=== PATIENT | female | born 1950 | race Caucasian/White ===

== ENCOUNTER → 2016-10-01 | Outpatient (CLI) | payer OTHER | END | disposition home or self-care (01) | LOC: C.PAPS 15:42 | PROVIDERS: ATTEND Obstetrics & Gynecology | DX: Z01.419 Encounter for gynecological examination (general) (routine) without abnormal findings (principal) ==

== ENCOUNTER → 2016-12-09 | Outpatient (CLI) | payer OTHER ==
--- NOTE | 2016-12-09 14:35 | MAMMOGRAPHY REPORT ---
BILATERAL DIGITAL SCREENING MAMMOGRAM WITH CAD: 12/09/2016 CLINICAL HISTORY: Routine screening. Patient has no complaints. TECHNIQUE: Current study was also evaluated with a Computer Aided Detection (CAD) system. Bilatera l CC and MLO views were obtained. COMPARISON: Comparison is made to exams dated: 12/09/2015 mammogram, 12/06/2014 mammogram, 11/30/2013 mammogram, 11/23/2012 mammogram, 11/23/2011 mammogram, and 11/20/2010 mammogram - [facility]. BREAST COMPOSITION: There are scattered areas of fibroglandular density in both breasts. FINDINGS: No suspicious masses, calcifications, or areas of architectural distortion are noted in e ither breast. There has been no significant interval change compared to prior exams. IMPRESSION: ACR BI-RADS CATEGORY 1: NEGATIVE There is no mammographic evidence of malignancy. A 1 year screening mammogram is recommended. The p atient will receive written notification of the results. Approximately 10% of breast cancers are not detected with mammography. A negative mammographic repor t should not delay biopsy if a clinically suggestive mass is present. Carla Harris M.D. /:12/09/2016 11:26:36 Glove Wrapper: Chanda Ahn, [facility] letter sent: Normal 1/2 BI-RADS Code: ACR BI-RADS Category 1: Negative
== END | disposition home or self-care (01) ==
LOC: C.MAMM 09:47
PROVIDERS: ATTEND Family Medicine
DX: Z12.31 Encounter for screening mammogram for malignant neoplasm of breast (principal)

== ENCOUNTER → 2017-02-10 | Outpatient (CLI) | payer OTHER ==
[2017-02-10 16:56] LABS: BASO % 0.5 %; BASO ABS # 0.03 K/uL (0-0.2); COMPLETE YES; EOS % 5.2 %; HEMATOCRIT 43.2 % (37-47); IG% 0.2 %; LYMPH % 27.9 %; LYMPH ABS # 1.73 K/uL (1.2-3.4); MEAN CELL VOLUME 91.1 fL (80-100); MEAN CORPUSCULAR HEMOGLOBIN 28.1 pg (25-34); MEAN CORPUSCULAR HGB CONC 30.8 g/dl (32-36); MONO % 7.4 %; NEUT % 58.8 %; PLATELET COUNT 188 K/uL (130-400); RED BLOOD COUNT 4.74 M/uL (4.2-5.4); WHITE BLOOD COUNT 6.21 K/uL (4.8-10.8)
[2017-02-10 17:26] LABS: BLOOD UREA NITROGEN 14 mg/dl (7-18); CREATININE 0.82 mg/dl (0.60-1.20); GLUCOSE 94 mg/dl (70-99)
[2017-02-10 17:27] LABS: BUN/CREATININE RATIO 16.6 (10-20); CALCIUM 9.2 mg/dl (8.5-10.1); CARBON DIOXIDE 30 mmol/L (21-32); CHLORIDE 109 mmol/L (98-107); POTASSIUM 3.8 mmol/L (3.5-5.1); SODIUM 143 mmol/L (136-145)
== END | disposition home or self-care (01) ==
LOC: C.LABBC 12:54
PROVIDERS: ATTEND Physician Assistant Medical
DX: R55 Syncope and collapse (principal)

== ENCOUNTER → 2017-12-16 | Outpatient (CLI) | payer OTHER ==
--- NOTE | 2017-12-17 14:19 | MAMMOGRAPHY REPORT ---
BILATERAL DIGITAL SCREENING MAMMOGRAM TOMOSYNTHESIS WITH CAD: 12/16/2017 CLINICAL HISTORY: Routine screening. Patient has no complaints. TECHNIQUE: Breast tomosynthesis in addition to standard 2D mammography was performed. Current study was also evaluated with a Computer Aided Detection (CAD) system. COMPARISON: Comparison is made to exams dated: 12/09/2016 mammogram, 12/09/2015 mammogram, 12/06/2014 m ammogram, 12/04/2013 mammogram, 11/30/2013 mammogram, and 11/23/2012 mammogram - [facility] enter. BREAST COMPOSITION: There are scattered areas of fibroglandular density in both breasts. FINDINGS: No suspicious masses, calcifications, or areas of architectural distortion are noted in ei ther breast. There has been no significant interval change compared to prior exams. IMPRESSION: ACR BI-RADS CATEGORY 1: NEGATIVE There is no mammographic evidence of malignancy. A 1 year screening mammogram is recommended. The pa tient will receive written notification of the results. Approximately 10% of breast cancers are not detected with mammography. A negative mammographic report should not delay biopsy if a clinically suggestive mass is present. Carla Harris M.D. /:12/16/2017 13:41:02 Judo Teacher: Chanda Ahn [facility] letter sent: Normal 1/2 BI-RADS Code: ACR BI-RADS Category 1: Negative
== END | disposition home or self-care (01) ==
LOC: C.MAMM 11:48
PROVIDERS: ATTEND Physician Assistant Medical
DX: Z12.31 Encounter for screening mammogram for malignant neoplasm of breast (principal)

== ENCOUNTER 2024-09-23 15:04 | Observation (INO) ==
[2024-09-23 16:18] LABS: Basophils # (auto) 0.05 K/uL (0.00-0.20); Basophils % (auto) 0.7 %; Eosinophils # (auto) 0.27 K/uL (0.00-0.50); Hematocrit (blood only) 41.3 % (37.0-47.0); Hemoglobin 13.3 g/dl (12.0-16.0); Immature Granulocytes # (auto) 0.02 K/uL (0.01-0.20); Immature Granulocytes % (auto) 0.3 %; Lymphocytes # (auto) 2.04 K/uL (1.20-3.40); Lymphocytes % (auto) 30.5 %; Mean Corpuscular Hemoglobin 29.4 pg (25.0-34.0); Mean Corpuscular Hgb Conc 32.2 g/dL (32.0-36.0); Mean Corpuscular Volume 91.2 fL (80.0-100.0); Mean Platelet Volume 11.2 fL (9.4-12.4); Monocytes # (auto) 0.43 K/uL (0.11-0.59); Monocytes % (auto) 6.4 %; Neutrophils # (auto) 3.87 K/uL (1.40-6.50); Neutrophils % (auto) 58.1 %; Platelet Count 173 K/uL (130-400); RDW Coefficient of Variation 13.7 % (11.5-14.5); RDW Standard Deviation 46.4 fL (36.4-46.3); Red Blood Count 4.53 M/uL (4.20-5.40); White Blood Count 6.68 K/ul (4.8-10.8)
--- NOTE | 2024-09-23 16:20 | Emergency Department Note ---
Impression & Plan Chest pain ED Provider Note HISTORY OF PRESENT ILLNESS: Patient is a 74-year-old female presenting with chest pain. Patient reports that this morning while eating breakfast she developed "intense pain" in her left shoulder blade. States that the pain then seemed to migrate to the left side of her anterior chest and is now in the substernal region of her chest. Reports she took an Advil earlier this morning with little relief in symptoms. Reports the pain in her chest is a tightness sensation. She is never had pain like this before. She states the pain has been constant since onset earlier this morning, but waxes and wanes in intensity. She does not note any alleviating or exacerbating factors. She denies any DVT or PE history. Denies any history of cardiac stents. She reports last time she had a stress test was "a long time ago." She currently is saying that she is having chest tightness, but rates it a 1 out of 10. Denies any associated nausea, vomiting, abdominal pain, back pain, shortness of breath. She does report intermittently throughout the morning she felt lightheaded and dizzy with the pain. Denies any recent medication changes. Denies any fevers or chills. Denies any recent sick contact exposures. ROS: as above PHYSICAL EXAM: Constitutional: Patient appears in no acute distress. HENT: Head: Normocephalic and atraumatic. Eyes: EOMI, PERRL Mouth/Throat: Mucous membranes moist. Neck: Trachea midline. Neck supple. Cardiovascular: RRR, No murmurs, rubs or gallops. Intact distal pulses. Pulmonary/Chest: No respiratory distress. Breath sounds clear and equal bilaterally. No wheezes or rales. Abdominal: Abdomen soft, no tenderness, rebound or guarding. Musculoskeletal: No edema, tenderness or deformity noted. Skin: Warm and dry. No rash, erythema, pallor or cyanosis Psychiatric: Appropriate mood and affect for situation. Neurological: Alert and keenly responsive. CN II-XII grossly intact, moving all extremities equally and fully. MDM: - Vitals signs showed hypertension - History obtained via patient. History as above. - Chronic conditions affecting care: HTN; HLD; obesity; prediabetes - Differential diagnoses include, but are not limited to: Acute coronary syndrome; pulmonary embolism; dissection; tension pneumothorax; esophageal rupture; pneumonia - Order placed for continuous cardiac monitoring. At this time, monitor showed rate of 70 bpm with normal sinus rhythm, per my interpretation. - External medical records reviewed. Primary care visit note dated 05/11/2024 was reviewed. Patient was seen in clinic for her regular follow-up. She had her fluoxetine medication discontinued at that visit. - EKG interpreted by myself showed normal sinus rhythm. Rate 82 bpm. QT 398. No acute ischemic changes. - Laboratory workup interpreted by myself showed normal WBC; normal PT/INR; elevated D-dimer (1860); normal electrolytes; normal troponin; normal lipase - CXR negative for pneumonia, per my interpretation - Viral respiratory panel negative - UA negative for infection - Repeat troponin within normal limits - CT PE negative for PE or dissection. - Patient was offered pain medication while in the emergency department, but she declined. However, she is still complaining of persistent chest pain on reassessment. Patient is moderate risk heart score based on age and multiple medical comorbidities. Will admit to hospitalist service. - Discussion was had with patient case coordinator about patient's case and need for admission - Hospitalist consulted for admission - Patient admitted to [facility] hospitalist service for further evaluation and management. ASSESSMENT AND PLAN: Diagnosis: Chest pain Plan: admit Past Med/Surg History Problem List (Updated 09/23/24 @ 21:39 by Ekaterina Hoffman MD) Chest pain (Acute) Depression, major, single episode, mild Mild intermittent asthma Hypertension Prediabetes (Acute) Obesity (BMI 30-39.9) Osteopenia Medical History Depression Polio Degenerative disc disease Spastic colon Prediabetes Heart palpitations Asthma Allergic rhinitis Surgical History History of anesthesia reaction History of surgery on arm History of esophagogastroduodenoscopy (EGD) History of colonoscopy History of tooth extraction Nasal polyps Family History Mother Essential hypertension Dementia Father Acute myocardial infarction in his 30s. Grandfather (Maternal) Family history of diabetes mellitus Grandmother (Maternal) Family history of diabetes mellitus Grandmother (Maternal) Breast cancer great grandma Uncle Lung cancer Other Diabetes Hypertension Myocardial infarction Stroke Denies family history of Ovarian cancer Prostate cancer Colorectal cancer Social History Smoking Status: Never smoker Second Hand Exposure: Yes ( A CHILD); Do You Dip or Chew Tobacco: No; Hx Alcohol Use: No Hx Substance Use: No Preferred Language: Danish Communication Ability: Effective Visual Impairment: Limited Hearing Ability: Normal Feed House Supervisor Required: No Beliefs That Will Affect Care: None marital status: marital status details: moved out but still Current Living Situation: Alone current occupational status: employed How many Children do You have: 4 other: Part-time Feels Safe at Home: Yes Childhood Exposure to Second-Hand Smoke: Yes Diet: regular caffeine: Yes Dental Care, Regularly: Yes Physical Activity Frequency: 3-4 Times per Week Seatbelt Use: always Sunscreen Use: No Assistive Devices: Glasses Allergies Allergies Allergy/AdvReac Type Severity Reaction Status Date / Time tioconazole Allergy ITCHING Verified 09/23/24 18:05 [From Monistat 1 (tioconazole)] Home Meds Home Medications Medication Instructions Recorded Confirmed bupropion HCl 200 mg tablet,12 hr 200 mg PO QAM 09/23/24 09/23/24 sustained-release fluvoxamine 50 mg tablet 50 mg PO HS 09/23/24 09/23/24 Previous Rx's Medication Instructions Recorded albuterol sulfate 90 mcg/actuation 2 puff inhalation Q6H PRN SHORT OF 05/23/24 aerosol inhaler BREATH #8.5 grams telmisartan 20 mg tablet 20 mg PO DAILY #90 tabs 07/05/24 fluticasone propionate 50 1 spray intranasal BID #16 grams 07/25/24 mcg/actuation nasal spray,suspension fluticasone 250 mcg-salmeterol 50 1 inh inhalation BID #180 ea 07/26/24 mcg/dose blistr powdr for inhalation (Wixela Inhub) Results & Data (ED) Vital Signs Vital Signs - 24 hr 09/23/24 15:05 09/23/24 15:17 09/23/24 15:17 Temperature 36.2 C L Temperature Source Skin Pulse Rate - Lying Pulse Rate - Sitting Pulse Rate - Standing Pulse Rate 83 Pulse Rate [Apical] Pulse Rate [Exercises] Pulse Rhythm [Apical] Pulse Strength [Apical] Respiratory Rate 18 18 Respiratory Rate [Exercises] Respiratory Effort / Characteristics Non-Labored Spontaneous Respiratory Depth Normal Respiratory Pattern Regular Blood Pressure - Lying Blood Pressure - Sitting Blood Pressure- Standing Blood Pressure 170/89 H Blood Pressure [Right Arm] Blood Pressure Mean 116 Blood Pressure Mean [Right Arm] Blood Pressure Position [Right Arm] Pulse Oximetry 97 Pulse Oximetry [Exercises] Oxygen Delivery Method Room Air Room Air Sepsis Recent Fever Within 48 Hours No Sepsis New/Unexplained Change in Mental Status N/A Sepsis Action Taken by Nursing No Action Required 09/23/24 15:51 09/23/24 15:59 09/23/24 19:36 Temperature Temperature Source Pulse Rate - Lying 72 Pulse Rate - Sitting 63 Pulse Rate - Standing 88 Pulse Rate 68 Pulse Rate [Apical] Pulse Rate [Exercises] Pulse Rhythm [Apical] Pulse Strength [Apical] Respiratory Rate Respiratory Rate [Exercises] Respiratory Effort / Characteristics Respiratory Depth Respiratory Pattern Blood Pressure - Lying 170/88 H Blood Pressure - Sitting 169/87 H Blood Pressure- Standing 159/92 H Blood Pressure Blood Pressure [Right Arm] Blood Pressure Mean Blood Pressure Mean [Right Arm] Blood Pressure Position [Right Arm] Pulse Oximetry Pulse Oximetry [Exercises] Oxygen Delivery Method Room Air Sepsis Recent Fever Within 48 Hours Sepsis New/Unexplained Change in Mental Status Sepsis Action Taken by Nursing 09/23/24 19:42 09/23/24 19:49 09/23/24 20:30 Temperature Temperature Source Pulse Rate - Lying Pulse Rate - Sitting Pulse Rate - Standing Pulse Rate 63 Pulse Rate [Apical] 67 Pulse Rate [Exercises] 93 H Pulse Rhythm [Apical] Regular Pulse Strength [Apical] Normal Respiratory Rate 19 Respiratory Rate [Exercises] 20 Respiratory Effort / Characteristics Non-Labored Spontaneous Respiratory Depth Normal Respiratory Pattern Regular Blood Pressure - Lying Blood Pressure - Sitting Blood Pressure- Standing Blood Pressure Blood Pressure [Right Arm] 156/86 H Blood Pressure Mean Blood Pressure Mean [Right Arm] 109 Blood Pressure Position [Right Arm] Sitting Pulse Oximetry 94 Pulse Oximetry [Exercises] 97 Oxygen Delivery Method Room Air Room Air Sepsis Recent Fever Within 48 Hours Sepsis New/Unexplained Change in Mental Status Sepsis Action Taken by Nursing Laboratory Data 09/23/24 15:23 09/23/24 15:23 Lab Results 09/23/24 09/23/24 09/23/24 Range/Units 15:23 16:54 19:10 WBC 6.68 (4.8-10.8) K/ul RBC 4.53 (4.20-5.40) M/uL Hgb 13.3 (12.0-16.0) g/dl Hct 41.3 (37.0-47.0) % MCV 91.2 (80.0-100.0) fL MCH 29.4 (25.0-34.0) pg MCHC 32.2 (32.0-36.0) g/dL RDW Std Deviation 46.4 H (36.4-46.3) fL RDW Coeff of Porsha 13.7 (11.5-14.5) % Plt Count 173 (130-400) K/uL MPV 11.2 (9.4-12.4) fL Immature Gran % (Auto) 0.3 % Neut % (Auto) 58.1 % Lymph % (Auto) 30.5 % Dane % (Auto) 6.4 % Eos % (Auto) 4.0 % Baso % (Auto) 0.7 % Neut # (Auto) 3.87 (1.40-6.50) K/uL Lymph # (Auto) 2.04 (1.20-3.40) K/uL Dane # (Auto) 0.43 (0.11-0.59) K/uL Eos # (Auto) 0.27 (0.00-0.50) K/uL Baso # (Auto) 0.05 (0.00-0.20) K/uL Immature Gran # (Auto) 0.02 (0.01-0.20) K/uL PT 11.1 (9.0-12.0) Seconds INR 1.0 (0.9-1.1) D-Dimer 1860 H* (0-500) ug/L FEU Sodium 140 (136-145) mmol/L Potassium 4.8 (3.5-5.1) mmol/L Chloride 107 (98-107) mmol/L Carbon Dioxide 27 (21-32) mmol/L Anion Gap 6 (3-11) BUN 19 (6-23) mg/dl Creatinine 1.10 (0.6-1.2) mg/dl Est Cr Clr Drug Dosing 50.8 ml/min eGFR 53.06 BUN/Creatinine Ratio 17.3 (10-20) Glucose 80 (70-99(Fasting)) mg/dl Calcium 10.2 (8.6-10.3) mg/dl Magnesium 2.0 (1.7-2.4) mg/dl Total Bilirubin 0.4 (0.2-1.0) mg/dl AST 24 (13-39) U/L ALT 16 (7-52) U/L Alkaline Phosphatase 68 (34-104) U/L Troponin I High Sens 3.7 5.0 (0-14) pg/ml Total Protein 7.1 (6.0-8.3) gm/dl Albumin 4.1 (3.4-5.0) gm/dl Globulin 3.0 (2.5-4.0) gm/dl Albumin/Globulin Ratio 1.4 (0.9-2) Lipase 11 (11-82) U/L Urine Color Yellow Urine Appearance Clear (Clear) Urine pH 6.0 (4.5-7.5) Ur Specific Byers 1.006 (1.000-1.030) Urine Protein Negative (Negative) Urine Glucose (UA) Negative (Negative) Urine Ketones Negative (Negative) Urine Blood Negative (Negative) Urine Nitrite Negative (Negative) Urine Bilirubin Negative (Negative) Urine Urobilinogen Negative (Negative) Ur Leukocyte Esterase Negative (Negative) Adenovirus (PCR) Not Detected (NotDetected) B. pertussis DNA (PCR) Not Detected (NotDetected) B.parapertussis DNA PCR Not Detected (NotDetected) C. pneumoniae DNA (PCR) Not Detected (NotDetected) Coronavirus OC43 (PCR) Not Detected (NotDetected) Coronavirus HKU1 (PCR) Not Detected (NotDetected) Coronavirus 229E (PCR) Not Detected (NotDetected) SARS-CoV-2 (PCR) Not Detected (NotDetected) Coronavirus NL63 (PCR) Not Detected (NotDetected) Human Metapneumovir PCR Not Detected (NotDetected) Influenza Type A (PCR) Not Detected (NotDetected) Influenza Type B (PCR) Not Detected (NotDetected) M. pneumoniae (PCR) Not Detected (NotDetected) Parainfluenza 1 (PCR) Not Detected (NotDetected) Parainfluenza 2 (PCR) Not Detected (NotDetected) Parainfluenza 3 (PCR) Not Detected (NotDetected) Parainfluenza 4 (PCR) Not Detected (NotDetected) RSV (PCR) Not Detected (NotDetected) Entero/Rhino (PCR) Not Detected (NotDetected) Administered Medications Discontinued Medications Ioversol (Optiray 320 125ml) 115 ml IV ONCE ONE Stop: 09/23/24 19:53 Last Admin: 09/23/24 19:52 Dose: 115 ml Documented By: SAMEER Imaging Data Radiologist's Impression: Chest X-Ray 09/23/24 15:59 EXAM: Radiograph of the Chest 1 View INDICATION: Chest pain. TECHNIQUE: Frontal view of the chest. COMPARISON: 07/12/2023 FINDINGS: Lungs and pleural spaces: No consolidation or pulmonary edema. No pleural effusion or pneumothorax. Heart: Stable cardiomegaly. Mediastinum: Normal contour. Bones/joints: Stable chronic deformity proximal left humerus. No acute osseous abnormality noted. Soft tissues: No abnormality noted. No radiopaque foreign body noted. Upper abdomen: No abnormality noted. IMPRESSION: No acute cardiopulmonary disease. ACT 112: Negative or not required by law. Electronically signed by Vijaya Oh 09-23-2024 4:30 PM Chest CTA 09/23/24 19:41 Exam(s): CTA CHEST IV Amt: 115 ml optiray 320 EXAM: CT Angiography Chest With Intravenous Contrast CLINICAL HISTORY: Reason for exam: PE. TECHNIQUE: Axial computed tomographic angiography images of the chest with intravenous contrast. CTDI is 25.63 mGy and DLP is 834.08 mGy-cm. Automated exposure control was utilized for the study. A dose lowering technique was utilized adhering to the principles of ALARA. MIP reconstructed images were created and reviewed. COMPARISON: No relevant prior studies available. FINDINGS: Pulmonary arteries: Unremarkable. No pulmonary embolism. Aorta: No acute findings. No thoracic aortic aneurysm. Lungs: Unremarkable. No mass. No consolidation. Pleural space: Unremarkable. No significant effusion. No pneumothorax. Heart: Unremarkable. No cardiomegaly. No significant pericardial effusion. No evidence of RV dysfunction. Bones/joints: No acute fracture. No dislocation. Soft tissues: Unremarkable. Lymph nodes: Unremarkable. No enlarged lymph nodes. IMPRESSION: Normal chest CTA. No pulmonary embolism. Electronically signed by: Vamsi Platt MD 09/23/24 21:33 PM Discharge Plan Visit Data Chief Complaint: Chest Pain Stated Complaint: PAIN BY L SHOULDERBLADE THIS AM, CHEST TIGHT NOW ED Provider: Ekaterina Hoffman Discharge Problem: Chest pain Forms Stand Alone Forms: My [facility] Prescriptions Prescriptions: No Action albuterol sulfate 90 mcg/actuation HFA aerosol inhaler 2 puff inhalation Q6H PRN (Reason: SHORT OF BREATH) Qty: 8.5 1RF telmisartan 20 mg tablet 20 mg PO DAILY Qty: 90 2RF fluticasone propionate 50 mcg/actuation spray,suspension 1 spray intranasal BID Qty: 16 2RF Rx Instructions: administer into each nostril fluticasone propion-salmeterol [Wixela Inhub] 250-50 mcg/dose blister with device 1 inh inhalation BID Qty: 180 2RF fluvoxamine 50 mg tablet 50 mg PO HS bupropion HCl 200 mg tablet sustained-release 12 hr 200 mg PO QAM Referrals Referrals: Nuno Dave DO [Primary Care Provider] -
[2024-09-23 16:22] LABS: Albumin Globulin Ratio 1.4 (0.9-2); Albumin Level 4.1 gm/dl (3.4-5.0); BUN Creatinine Ratio 17.3 (10-20); Bilirubin,Total 0.4 mg/dl (0.2-1.0); Calcium 10.2 mg/dl (8.6-10.3); Creatinine Clr Calc Pharmacy 50.8 ml/min; Potassium 4.8 mmol/L (3.5-5.1); Total Protein 7.1 gm/dl (6.0-8.3)
[2024-09-23 16:30] LABS: Troponin I High Sensitivity 3.7 pg/ml (0-14)
--- NOTE | 2024-09-23 16:30 | XRay Report ---
EXAM: Radiograph of the Chest 1 View INDICATION: Chest pain. TECHNIQUE: Frontal view of the chest. COMPARISON: 07/12/2023 FINDINGS: Lungs and pleural spaces: No consolidation or pulmonary edema. No pleural effusion or pneumothorax. Heart: Stable cardiomegaly. Mediastinum: Normal contour. Bones/joints: Stable chronic deformity proximal left humerus. No acute osseous abnormality noted. Soft tissues: No abnormality noted. No radiopaque foreign body noted. Upper abdomen: No abnormality noted. IMPRESSION: No acute cardiopulmonary disease. ACT 112: Negative or not required by law. Electronically signed by Vijaya Oh 09-23-2024 4:30 PM
[2024-09-23 16:42] LABS: Prothrombin Time 11.1 Seconds (9.0-12.0)
[2024-09-23 17:14] LABS: Appearance Urine Clear (Clear); Bilirubin Urine Negative (Negative); Blood Urine Negative (Negative); Color Urine Yellow; Glucose Urine UA Negative (Negative); Ketones Urine Negative (Negative); Leukocyte Esterase Urine Negative (Negative); Nitrite Urine Negative (Negative); Protein Urine Negative (Negative); Specific Gravity Urine 1.006 (1.000-1.030); Urobilinogen Urine Negative (Negative)
[2024-09-23 18:00] LABS: Adenovirus PCR Not Detected (NotDetected); Bordetella parapertussis PCR Not Detected (NotDetected); Bordetella pertussis PCR Not Detected (NotDetected); Chlamydia pneumoniae PCR Not Detected (NotDetected); Coronavirus 229E PCR Not Detected (NotDetected); Coronavirus CoV-2 (COVID19)PCR Not Detected (NotDetected); Coronavirus HKU1 PCR Not Detected (NotDetected); Coronavirus NL63 PCR Not Detected (NotDetected); Coronavirus OC43PCR Not Detected (NotDetected); Human Metapneumovirus PCR Not Detected (NotDetected); Influenza A PCR Not Detected (NotDetected); Influenza B PCR Not Detected (NotDetected); Mycoplasma pneumoniae PCR Not Detected (NotDetected); Parainfluenza Virus 1 PCR Not Detected (NotDetected); Parainfluenza Virus 2 PCR Not Detected (NotDetected); Parainfluenza Virus 3 PCR Not Detected (NotDetected); Parainfluenza Virus 4 PCR Not Detected (NotDetected); Respiratory Syncytial VirusPCR Not Detected (NotDetected); Rhinovirus/Enterovirus PCR Not Detected (NotDetected)
[2024-09-23 19:41] LABS: D Dimer 1860 ug/L FEU (0-500)
[2024-09-23] MEDS: OPTIRAY 320 125ml IV ONE (19:52)
--- NOTE | 2024-09-23 21:34 | CT Scan Report ---
Exam(s): CTA CHEST IV Amt: 115 ml optiray 320 EXAM: CT Angiography Chest With Intravenous Contrast CLINICAL HISTORY: Reason for exam: PE. TECHNIQUE: Axial computed tomographic angiography images of the chest with intravenous contrast. CTDI is 25.63 mGy and DLP is 834.08 mGy-cm. Automated exposure control was utilized for the study. A dose lowering technique was utilized adhering to the principles of ALARA. MIP reconstructed images were created and reviewed. COMPARISON: No relevant prior studies available. FINDINGS: Pulmonary arteries: Unremarkable. No pulmonary embolism. Aorta: No acute findings. No thoracic aortic aneurysm. Lungs: Unremarkable. No mass. No consolidation. Pleural space: Unremarkable. No significant effusion. No pneumothorax. Heart: Unremarkable. No cardiomegaly. No significant pericardial effusion. No evidence of RV dysfunction. Bones/joints: No acute fracture. No dislocation. Soft tissues: Unremarkable. Lymph nodes: Unremarkable. No enlarged lymph nodes. IMPRESSION: Normal chest CTA. No pulmonary embolism. Electronically signed by: Vamsi Platt MD 09/23/24 21:33 PM
[2024-09-23] MEDS ORDERED: ALUMINUM/MAGNESIUM SUSP 30 ML UDC PO PRN (22:10)
[2024-09-23] MEDS ORDERED: ACETAMINOPHEN 325 MG TAB PO PRN ×2 (22:10→23:03)
--- NOTE | 2024-09-23 22:10 | History & Physical Report ---
Date of Service September 23, 2024 Assessment & Plan (1) Chest pain: (2) Elevated d-dimer: Plan 74-year-old female PMHx asthma, HTN, and MDD presenting to ED for evaluation of chest tightness. ED workup reveals normal CBC, normal CMP, clean UA, negative bio fire, but elevated D-dimer 1860. CXR was without acute findings, and chest CTA revealed no PE. EKG NSR with manage criteria for LVH and rate of 82 bpm. #Chest pressure/elevated D-dimer Chest pressure initially starting as left shoulder blade pain, intense in nature then localizing to central chest, coming and going, but a nagging 1 out of 10 sensation. No abdominal symptoms, no recent illness. No personal history of car diac disease, but positive family history of cardiac disease. Evaluated by foreign banknote teller in the past for what she describes as "the feeling you get right before chill" but with a benign workup. Report for prior Holter monitor completed in August 2021; Overall WNL, symptoms assocaited w/ VPDs. Declined aspirin in ED. On telmisartan for HTN. HEART score 3 (Age, risk factors [2]). - EKG normal sinus rhythm, ? LVH; Troponin 3.7, repeat 5; will trend once more - D-dimer 1860; CXR WNL, chest CTA WNL - Echo pending - Lipid panel 04/2024- total 193, LDL 101, HDL 42, TG 248 - Tylenol 500mg po q4hr for pain; K-pad for L shoulder pain if it returns - Maalox 30mL po q4hr if indigestion #Asthma- H/o asthma, stable without SOB or cough at time of admission; Home medications, albuterol as needed, fluticasone/salmeterol - continue #MDD- Fluvoxamine Dispo: Admit, observation, med/tele VTE Prophylaxis: SCDs, encourage ambulation This document was dictated utilizing [employer]. Please excuse any grammatical errors that may be secondary to use of this software. Admission and Anticipated Discharge Date Admission Date: 09/23/2024 History of Present Illness Chief Complaint: Chest tightness Primary Care Provider: Nuno Dave DO 74-year-old female PMHx asthma, HTN, and MDD presenting to ED for evaluation of chest tightness. The morning of arrival, patient noticed that she was having intense left shoulder blade pain which was not letting up. States after an hour or so, the pain subsided and seem to have changed locations to her central ch est, and then mainly localizing between central chest and left side. States that the chest tightness is coming on and off, and reading the sensation a 1 out of 10 but nagging. Does have some fluttering in her chest at times, but unable to recall the most recent time that this occurred, stating it might of happened on the day of arrival but is unsure. On her way to the ED, she was driving and states that she started to feel lightheaded and dizzy. Does have bilateral leg swelling at times, but has not noticed that 1 leg was swollen or erythematous compared to the other. No diaphoresis, SOB, cough, abdominal pain, N/B/D/C, LUTS, fever/chills, or recent illness. ED workup reveals normal CBC, normal CMP, clean UA, negative bio fire, but elevated D-dimer 1860. Troponin 3.7, repeat 5. CXR was without acute findings, and chest CTA revealed no PE. EKG NSR with manage criteria for LVH and rate of [address] Hdez's attestation for adjustments/additions to treatment plan. Allergies Allergy/AdvReac Type Severity Reaction Status Date / Time tioconazole Allergy ITCHING Verified 09/23/24 18:05 [From Monistat 1 (tioconazole)] Home Medications Medication Instructions Recorded Confirmed Type albuterol sulfate 90 mcg/actuation 2 puff inhalation Q6H PRN SHORT OF 05/23/24 09/23/24 Rx aerosol inhaler BREATH #8.5 grams telmisartan 20 mg tablet 20 mg PO DAILY #90 tabs 07/05/24 09/23/24 Rx fluticasone propionate 50 1 spray intranasal BID #16 grams 07/25/24 09/23/24 Rx mcg/actuation nasal spray,suspension fluticasone 250 mcg-salmeterol 50 1 inh inhalation BID #180 ea 07/26/24 09/23/24 Rx mcg/dose blistr powdr for inhalation (Wixela Inhub) bupropion HCl 200 mg tablet,12 hr 200 mg PO QAM 09/23/24 09/23/24 History sustained-release fluvoxamine 50 mg tablet 50 mg PO HS 09/23/24 09/23/24 History cyanocobalamin (vitamin B-12) 500 1,000 mcg (2 x 500 mcg) PO QAM #60 09/24/24 Rx mcg tablet tabs Past Med/Surg History Problem List (Updated 09/23/24 @ 22:12 by Phyllis Love PA-C) Elevated d-dimer Chest pain (Acute) Depression, major, single episode, mild Mild intermittent asthma Hypertension Prediabetes (Acute) Obesity (BMI 30-39.9) Osteopenia Medical History Depression Polio Degenerative disc disease Spastic colon Prediabetes Heart palpitations Asthma Allergic rhinitis Surgical History History of anesthesia reaction History of surgery on arm History of esophagogastroduodenoscopy (EGD) History of colonoscopy History of tooth extraction Nasal polyps Family History Mother Essential hypertension Dementia Father Acute myocardial infarction in his 30s. Grandfather (Maternal) Family history of diabetes mellitus Grandmother (Maternal) Family history of diabetes mellitus Grandmother (Maternal) Breast cancer great grandma Uncle Lung cancer Other Diabetes Hypertension Myocardial infarction Stroke Denies family history of Ovarian cancer Prostate cancer Colorectal cancer Social History Smoking Status: Never smoker Second Hand Exposure: No; Do You Dip or Chew Tobacco: No; Hx Alcohol Use: No Hx Substance Use: No Preferred Language: Mongolian Communication Ability: Effective Visual Impairment: Limited Hearing Ability: Normal Broom Bundler Required: No Beliefs That Will Affect Care: None marital status: marital status details: moved out but still Current Living Situation: Alone current occupational status: employed How many Children do You have: 4 other: Part-time Feels Safe at Home: Yes Childhood Exposure to Second-Hand Smoke: Yes Diet: regular caffeine: Yes Dental Care, Regularly: Yes Physical Activity Frequency: 3-4 Times per Week Seatbelt Use: always Sunscreen Use: No Assistive Devices: Glasses Review of Systems Review of Systems: All systems reviewed & are unremarkable except as noted in Subjective Physical Exam Physical Exam: General: No acute distress Skin: Warm and dry, without rashes or lesions Head: Normocephalic, atraumatic Eyes: PERRL, conjunctivae clear, sclera non-icteric ENT: External ear and ear canal without swelling; nose atraumatic; good d entition, tongue normal appearance, pharynx normal Neck: Supple, no LAD Cardio: RRR, no M/G/R, S1 and S2 normal; no tenderness to palpation of chest Resp: No respiratory distress, Lungs CTA in all lobes bilaterally, no wheezes, rales, or rhonchi Abdomen: Soft, symmetric, nontender; No masses or hepatosplenomegaly; Bowel sounds normoactive MSK: No deformities; pulses palpable and equal; no edema. Neuro: Awake, alert; CN grossly intact Psych: Appropriate mood and affect; good judgement and insight. Results & Data Results & Data Vital Signs (Past 12 Hours) Vital Signs Temp Pulse Pulse Pulse Resp Resp BP 09/23/24 20:30 67 19 09/23/24 19:49 93 H 20 09/23/24 19:42 63 09/23/24 15:59 09/23/24 15:51 68 09/23/24 15:17 18 09/23/24 15:17 09/23/24 15:05 36.2 C L 83 18 170/89 H BP Pulse Ox Pulse Ox O2 Del Method 09/23/24 20:30 156/86 H 94 Room Air 09/23/24 19:49 97 Room Air 09/23/24 19:42 09/23/24 15:59 Room Air 09/23/24 15:51 09/23/24 15:17 09/23/24 15:17 Room Air 09/23/24 15:05 97 Room Air Laboratory Results 09/23/24 09/23/24 09/23/24 19:10 16:54 15:23 WBC 6.68 RBC 4.53 Hgb 13.3 Hct 41.3 MCV 91.2 MCH 29.4 MCHC 32.2 RDW Std Deviation 46.4 H RDW Coeff of Porsha 13.7 Plt Count 173 MPV 11.2 Immature Gran % (Auto) 0.3 Neut % (Auto) 58.1 Lymph % (Auto) 30.5 [place] % (Auto) 6.4 Eos % (Auto) 4.0 Baso % (Auto) 0.7 Neut # (Auto) 3.87 Lymph # (Auto) 2.04 [place] # (Auto) 0.43 Eos # (Auto) 0.27 Baso # (Auto) 0.05 Immature Gran # (Auto) 0.02 PT 11.1 INR 1.0 D-Dimer 1860 H* Sodium 140 Potassium 4.8 Chloride 107 Carbon Dioxide 27 Anion Gap 6 BUN 19 Creatinine 1.10 Est Cr Clr Drug Dosing 50.8 eGFR 53.06 BUN/Creatinine Ratio 17.3 Glucose 80 Calcium 10.2 Magnesium 2.0 Total Bilirubin 0.4 AST 24 ALT 16 Alkaline Phosphatase 68 Troponin I High Sens 5.0 3.7 Total Protein 7.1 Albumin 4.1 Globulin 3.0 Albumin/Globulin Ratio 1.4 Lipase 11 Urine Color Yellow Urine Appearance Clear Urine pH 6.0 Ur Specific [place] 1.006 Urine Protein Negative Urine Glucose (UA) Negative Urine Ketones Negative Urine Blood Negative Urine Nitrite Negative Urine Bilirubin Negative Urine Urobilinogen Negative Ur Leukocyte Esterase Negative Adenovirus (PCR) Not Detected B. pertussis DNA (PCR) Not Detected B.parapertussis DNA PCR Not Detected C. pneumoniae DNA (PCR) Not Detected Coronavirus OC43 (PCR) Not Detected Coronavirus HKU1 (PCR) Not Detected Coronavirus 229E (PCR) Not Detected SARS-CoV-2 (PCR) Not Detected Coronavirus NL63 (PCR) Not Detected Human Metapneumovir PCR Not Detected Influenza Type A (PCR) Not Detected Influenza Type B (PCR) Not Detected M. pneumoniae (PCR) Not Detected Parainfluenza 1 (PCR) Not Detected Parainfluenza 2 (PCR) Not Detected Parainfluenza 3 (PCR) Not Detected Parainfluenza 4 (PCR) Not Detected RSV (PCR) Not Detected Entero/Rhino (PCR) Not Detected Diagnostic Findings Chest X-Ray 09/23/24 15:59 EXAM: Radiograph of the Chest 1 View INDICATION: Chest pain. TECHNIQUE: Frontal view of the chest. COMPARISON: 07/12/2023 FINDINGS: Lungs and pleural spaces: No consolidation or pulmonary edema. No pleural effusion or pneumothorax. Heart: Stable cardiomegaly. Mediastinum: Normal contour. Bones/joints: Stable chronic deformity proximal left humerus. No acute osseous abnormality noted. Soft tissues: No abnormality noted. No radiopaque foreign body noted. Upper abdomen: No abnormality noted. IMPRESSION: No acute cardiopulmonary disease. ACT 112: Negative or not required by law. Electronically signed by Vijaya Oh 09-23-2024 4:30 PM Chest CTA 09/23/24 19:41 Exam(s): CTA CHEST IV Amt: 115 ml optiray 320 EXAM: CT Angiography Chest With Intravenous Contrast CLINICAL HISTORY: Reason for exam: PE. TECHNIQUE: Axial computed tomographic angiography images of the chest with intravenous contrast. CTDI is 25.63 mGy and DLP is 834.08 mGy-cm. Automated exposure control was utilized for the study. A dose lowering technique was utilized adhering to the principles of ALARA. MIP reconstructed images were created and reviewed. COMPARISON: No relevant prior studies available. FINDINGS: Pulmonary arteries: Unremarkable. No pulmonary embolism. Aorta: No acute findings. No thoracic aortic aneurysm. Lungs: Unremarkable. No mass. No consolidation. Pleural space: Unremarkable. No significant effusion. No pneumothorax. Heart: Unremarkable. No cardiomegaly. No significant pericardial effusion. No evidence of RV dysfunction. Bones/joints: No acute fracture. No dislocation. Soft tissues: Unremarkable. Lymph nodes: Unremarkable. No enlarged lymph nodes. IMPRESSION: Normal chest CTA. No pulmonary embolism. Electronically signed by: Vamsi Platt MD 09/23/24 21:33 PM ECG Additional Comments: NSR, low voltage criteria LVH 82 bpm, MN 152, QRS 88, QT/QTc 398/464, PRT 49/-5/46 Code Status & VTE Plan Code Status Full VTE Prophylaxis Plan VTE Prophylaxis will be ordered: Yes Supervising Physician Co-Signing Physician Notes Attending addendum: I have physically seen this patient, have supervised the ANTONETTE's activities, and agree with the H&P unless as otherwise noted. Assessment and Plan: The patient is a 74-year-old female with a past medical history including asthma, hypertension, MDD, and B12 deficiency. She presents to the emergency department with complaint of chest tightness. Was found to have a positive D- dimer of 1860, with negative CT angiography for PE. Troponin initially 3.7 with follow-up 5.0. Due to high risk score, she was referred for evaluation for chest pain. Chest pressure/elevated D-dimer- D-dimer 1860 CT PE protocol negative for PE The patient will be admitted to telemetry for serial cardiac enzymes, serial EKG's, cardiac rhythm monitoring and a 2-D echocardiogram with Dopplers. Acetaminophen 500 mg every 4 hours as needed for mild pain or fever Asthma- Continue usual regimen of fluticasone/subcentimeter all, and albuterol HFA as needed MDD- Continue fluvoxamine PG Care Time/CCT Total # of Minutes Spent Total Time Spent with Patient: Total time spent is greater than 50% in coordination of care (as documented) at patient's floor/unit and/or counseling patient: Coding Level of Care Code 00407 INT INP/OBS CARE 3/75MIN Diagnoses Chest pain R07.9 Elevated d-dimer R79.89
[2024-09-23] MEDS ORDERED: POLYETHYLENE (MIRALAX) 17 GM PACK PO PRN (23:03)
[2024-09-23] MEDS ORDERED: MELATONIN 3 MG TAB PO PRN (23:03)
[2024-09-24 07:56] VITALS: RESP 16; O2SAT 95
--- NOTE | 2024-09-24 08:00 | Hospitalist Progress Note ---
Date of Service September 24, 2024 Assessment & Plan (1) Chest pain: (2) Elevated d-dimer: Plan 74-year-old female PMHx asthma, HTN, and MDD presenting to ED for evaluation of chest tightness. ED workup reveals normal CBC, normal CMP, clean UA, negative bio fire, but elevated D-dimer 1859. CXR was without acute findings, and chest CTA revealed no PE. EKG NSR with manage criteria for LVH and rate of 82 bpm. Biofire negative. Troponin 3.7--> 5 --> 4.8 #Chest pressure/elevated D-dimer Chest pressure initially starting as left shoulder blade pain, intense in nature then localizing to central chest, coming and going, but a nagging 1 out of 10 sensation. No abdominal symptoms, no recent illness. No personal history of cardiac disease, but positive family history of cardiac disease. Evaluated by heel top lift splitter in the past for what she describes as "the feeling you get right before chill" but with a benign workup. Report for prior Holter monitor completed in August 2021; Overall WNL, symptoms associated w/ VPDs. Declined aspirin in ED. On telmisartan for HTN. HEART score 3 (Age, risk factors [2]). EKG NSR ?LVH. Rate 82bpm. Troponin 3.7--> 5 --> 4.8 Biofire negative. Ddimer 1859 but no PE noted on CTA chest ECHO pending, will check BNP as well Prior lipid panel in Apr 2024 w/ elevated LDL to 101, total cholesterol 193, HDL 42 and TRG 248 and not on any statin but would increase risk factor. Consider statin/fenofibrate for risk/prevention Pain control with tylenol, heating pad for LEFT should. Maalox for indigestion BP was 170/89 on admission, on torsemide once daily for HTN Check Vit D, TSH, B12 as well Does also have major depression, ?underlying anxiety related No further CP/pressure per nursing notes. ECHO pending and will repeat EKG but given negative troponins if ECHO ok likely plan for dc today #Asthma - H/o asthma, stable without SOB or cough at time of admission; Home medications, albuterol as needed, fluticasone/salmeterol - continue - Check BNP as well as TSH/Vit D as above 95% on RA #MDD - Fluvoxamine --> had this dc at her most recent office visit in April and has been on buproprion 200mg QAM HTN - telmisartan resumed, K was 4.8 on admission, BMP added/monitoring today. If elevated may benefit from combination telmistartan/low dose HCTZ?? Dispo: Admit, observation, med/tele VTE Prophylaxis: SCDs, encourage ambulation . If remains inpatient consider adding chemoproph Admission and Anticipated Discharge Date Admission Date: September 23, 2024 Results & Data Results & Data Vital Signs (Past 12 Hours) Vital Signs Temp Pulse Pulse Pulse Resp BP BP 09/24/24 07:10 72 09/24/24 02:37 36.6 C 63 18 123/74 09/24/24 01:31 36.6 C 67 16 160/81 H 09/23/24 23:00 66 09/23/24 22:28 65 18 163/84 H 09/23/24 21:30 65 18 149/83 H 09/23/24 20:30 67 19 156/86 H Pulse Ox O2 Del Method 09/24/24 07:10 09/24/24 02:37 96 Room Air 09/24/24 01:31 96 Room Air 09/23/24 23:00 09/23/24 22:28 94 Room Air 09/23/24 21:30 94 Room Air 09/23/24 20:30 94 Room Air PG Care Time/CCT Total # of Minutes Spent Total Time Spent with Patient: Total time spent is greater than 50% in coordination of care (as documented) at patient's floor/unit and/or counseling patient: Coding Diagnoses Chest pain R07.9 Elevated d-dimer R79.89
[2024-09-24 08:46] LABS: BUN Creatinine Ratio 13.7 (10-20); Calcium 9.8 mg/dl (8.6-10.3); Creatinine Clr Calc Pharmacy 54.4 ml/min; Potassium 4.4 mmol/L (3.5-5.1)
[2024-09-24 09:01] LABS: Thyroid Stimulating Hormone 2.239 uIu/ml (0.300-4.500)
[2024-09-24] MEDS: FLUTICASONE/VILANTEROL 200/25MCG 14 PUFFS/INHALER INH SCH (09:29)
[2024-09-24] MEDS: LOSARTAN POTASSIUM 25 MG TAB PO SCH (09:29)
[2024-09-24] MEDS: buPROPion SR 100 MG TABCR PO SCH (09:29)
--- NOTE | 2024-09-24 10:18 | Discharge Summary ---
Discharge Summary Date of Service September 24, 2024 Principal Dx & Hospital Course #1 = Principal Diagnosis (1) Chest pain: (2) Elevated d-dimer: Plan 74-year-old female PMHx asthma, HTN, and MDD presenting to ED for evaluation of chest tightness. Ddimer elevated to 1860. CXR was without acute findings Chest CTA NEGATIVE for PE, no pulmonary edema/effusion or consolidation concerning for PNA. No leukocytosis or fevers reported. Biofire negative. UA negative, normal CBC/BMP, UA without infection EKG NSR with noted LVH, rate 82 bpm. Troponin 3.7--> 5 --> 4.8 ECHO w/ Normal LV size and systolic function. EF 55-60%. No regional wall motion abnormalities. Mild concentric left ventricular hypertrophy. Trace aortic regurgitation. Normal estimated RVSP. No prior study for comparison. No further chest pain. Labs stable on repeat. B12 borderline low at 202 and PO supplementation started/continued at dc. Notable did also check Vit D w/ underlying anxiety/depression (TSH checked/wnl, NSR on telemetry) and was ELEVATED to 103.8 however no Vit D on home med list but was discussed with patient and takes Vit D/calcium and notes 6000IU Vit D daily with her supplement due to bone scan w/ reports osteopenia and recommended she STOP this medication at discharge and follow up with primary care about possible prolia vs other as outpatient. Stable for dc, no further CP and anxious to dc. Notable prior lipid panel in Apr 2024 w/ elevated LDL to 101, total cholesterol 193, HDL 42 and TRG 248 and not on any statin but would increase risk factor--> Consider statin/fenofibrate for risk/prevention in f/u PCP as discussed with patient, does have father w/ hx KS but no early cardiac deaths reported. Rec continued monitoring BP/continued on telmisartan/hospital equivalent but BP was elevated slightly on admission but normal prior to dc and defer to PCP about additional agent at this time. Notes For Next Care Provider Rec monitoring BP w/ her LVH and if elevated, addition of low dose HCTZ could be considered but most recent BP check 122/80 and stable in hospital setting. Consider starting statin for prior cholesterol levels/fenofibrate, father w/ hx MIs. Not on baby aspirin but could be considered F/u vit D level 2-3 months, consideration for prolia injections vs other for osteopenia as Vit D level ELEVATED Notable did have reports L shoulder blader pain, imaging from admission w/ Stable chronic deformity proximal left humerus reported but strength intact. F/u PCP/ref to ortho as desired. ?if had some nerve impingement prior to admission but no reports reported prior to dc Medication Changes From Visit Home Vitamin D stopped w/ calcium, Vit D level 103.8 B12 level 202, placed on 1000mcg PO daily at dc Admission HPI Per Admitting Provider 74-year-old female PMHx asthma, HTN, and MDD presenting to ED for evaluation of chest tightness. The morning of arrival, patient noticed that she was having intense left shoulder blade pain which was not letting up. States after an hour or so, the pain subsided and seem to have changed locations to her central chest, and then mainly localizing between central chest and left side. States that the chest tightness is coming on and off, and reading the sensation a 1 out of 10 but nagging. Does have some fluttering in her chest at times, but unable to recall the most recent time that this occurred, stating it might of happened on the day of arrival but is unsure. On her way to the ED, she was driving and states that she started to feel lightheaded and dizzy. Does have bilateral leg swelling at times, but has not noticed that 1 leg was swollen or erythematous compared to the other. No diaphoresis, SOB, cough, abdominal pain, N/B/D/C, LUTS, fever/chills, or recent illness. ED workup reveals normal CBC, normal CMP, clean UA, negative bio fire, but elevated D-dimer 1860. Troponin 3.7, repeat 5. CXR was without acute findings, and chest CTA revealed no PE. EKG NSR with manage criteria for LVH and rate of [address] Hdez's attestation for adjustments/additions to treatment plan. Admission Exam Per Admitting Provider General: No acute distress Skin: Warm and dry, without rashes or lesions Head: Normocephalic, atraumatic Eyes: PERRL, conjunctivae clear, sclera non-icteric ENT: External ear and ear canal without swelling; nose atraumatic; good dentition, tongue normal appearance, pharynx normal Neck: Supple, no LAD Cardio: RRR, no M/G/R, S1 and S2 normal; no tenderness to palpation of chest Resp: No respiratory distress, Lungs CTA in all lobes bilaterally, no wheezes, rales, or rhonchi Abdomen: Soft, symmetric, nontender; No masses or hepatosplenomegaly; Bowel sounds normoactive MSK: No deformities; pulses palpable and equal; no edema. Neuro: Awake, alert; CN grossly intact Psych: Appropriate mood and affect; good judgement and insight. Discharge Exam General: 74yo female sitting up in bed, resting, NAD, wanting to go home/No CP/SOB reported Head atraumatic, normocephalic, mmm, trachea midline Resp: even/unlabored, no wheezing/rales, on room air, able to talk in complete sentences CV: RRR, NSR on telemetry, no significant m/r/g, no pitting edema, pulses present GI: +BS, soft/NT no skinner MSK/neuro: nonfocal, not confused, moves all extremities Psych: AOx3, cooperative with exam Discharge Plan Discharge Items Patient Disposition: Home - Self-Care Reason For Visit: Elevated Ddimer, chest pressure Discharge Diagnosis: Chest pain, elevated ddimer Goals: You have been hospitalized for an acute medical problem. During your stay at [facility], we have made an effort to correct the problem that brought you to the hospital while keeping you as comfortable as possible. Medications were used to bring your condition under control and your discharge instructions will include directions for any medications you should take after leaving the hospital. Please make sure you see your Primary Care Provider as part of your follow up plan. Activity: As commented below Non-emergency contact: Primary Care Provider Call non-emergency contact if: you have any medication questions, your symptoms worsen, your pain is not controlled, your pain is worsening and your pain is unusual for you Follow-up/Referrals: Nuno Daev, DO [Primary Care Provider] - Diet: Heart Healthy Addtl Attending Provider Instructions: You have been hospitalized for chest pain/pressure. Troponin (enzyme to let us know about damage to the heart) was checked and NEGATIVE x 3. ECHO (ultrasound of the heart) showed no wall motion abnormalities or significant valvular disease. CT of the chest was NEGATIVE for blood clot or pneumonia and biofire was negative for virus at this time. As discussed, please STOP vitamin D/calcium supplements as your levels were HIGH. Discuss with primary care about shots to help with bone health in future and repeat level check. Your Vitamin B12 level was low normal and have been started on oral supplementation/continued at discharge. This can cause fatigue/neuropathy as well as memory issues and anemia. Please continue low salt diet/monitoring of blood pressure and may need this increased in follow up if elevated but has been acceptable at this time. Please follow up with primary care about possibly starting statin for cholesterol for risk prevention as discussed given family history of KS in your father. Please return to the ER with any return of chest pain, shortness of breath, or for any other symptoms concerning for you. It has been a pleasure being a part of the medical team providing for you while you have been in the hospital. Pending Studies at Discharge: No Stand-Alone Forms: My [facility] SET, Smoking Cessation Medications and DC Order Prescriptions: New cyanocobalamin (vitamin B-12) 500 mcg Tablet 1,000 mcg PO QAM Qty: 60 0RF Continued albuterol sulfate 90 mcg/actuation HFA aerosol inhaler 2 puff inhalation Q6H PRN (Reason: SHORT OF BREATH) Qty: 8.5 1RF telmisartan 20 mg tablet 20 mg PO DAILY Qty: 90 2RF fluticasone propionate 50 mcg/actuation spray,suspension 1 spray intranasal BID Qty: 16 2RF Rx Instructions: administer into each nostril fluticasone propion-salmeterol [Wixela Inhub] 250-50 mcg/dose blister with device 1 inh inhalation BID Qty: 180 2RF fluvoxamine 50 mg tablet 50 mg PO HS bupropion HCl 200 mg tablet sustained-release 12 hr 200 mg PO QAM Discharge Orders: Discharge Order (Routine); Ordered 09/24/24 Ordered By: Nupur Trevizo Admission Data Admit Date/Time: 09/23/24 21:54 Attending Provider: Justen Jordan Admit Provider: Benton Hdez Primary Care Provider: Nuno Dave Other Providers: Benton Hdez Other Interventions: Discharge Summary Assessment (RN) Last Done: 09/24/24 11:50 Hospital Stay Data Consultations 09/23/24 21:04 ED Decision to Admit Stat Diagnostic Imagining Performed Chest X-Ray 09/23/24 15:59 EXAM: Radiograph of the Chest 1 View INDICATION: Chest pain. TECHNIQUE: Frontal view of the chest. COMPARISON: 07/12/2023 FINDINGS: Lungs and pleural spaces: No consolidation or pulmonary edema. No pleural effusion or pneumothorax. Heart: Stable cardiomegaly. Mediastinum: Normal contour. Bones/joints: Stable chronic deformity proximal left humerus. No acute osseous abnormality noted. Soft tissues: No abnormality noted. No radiopaque foreign body noted. Upper abdomen: No abnormality noted. IMPRESSION: No acute cardiopulmonary disease. ACT 112: Negative or not required by law. Electronically signed by Vijaya Oh 09-23-2024 4:30 PM Chest CTA 09/23/24 19:41 Exam(s): CTA CHEST IV Amt: 115 ml optiray 320 EXAM: CT Angiography Chest With Intravenous Contrast CLINICAL HISTORY: Reason for exam: PE. TECHNIQUE: Axial computed tomographic angiography images of the chest with intravenous contrast. CTDI is 25.63 mGy and DLP is 834.08 mGy-cm. Automated exposure control was utilized for the study. A dose lowering technique was utilized adhering to the principles of ALARA. MIP reconstructed images were created and reviewed. COMPARISON: No relevant prior studies available. FINDINGS: Pulmonary arteries: Unremarkable. No pulmonary embolism. Aorta: No acute findings. No thoracic aortic aneurysm. Lungs: Unremarkable. No mass. No consolidation. Pleural space: Unremarkable. No significant effusion. No pneumothorax. Heart: Unremarkable. No cardiomegaly. No significant pericardial effusion. No evidence of RV dysfunction. Bones/joints: No acute fracture. No dislocation. Soft tissues: Unremarkable. Lymph nodes: Unremarkable. No enlarged lymph nodes. IMPRESSION: Normal chest CTA. No pulmonary embolism. Electronically signed by: Vamsi Platt MD 09/23/24 21:33 PM ECHOCARDIOGRAM Normal LV size and systolic function. EF 55-60%. No regional wall motion abnormalities. Mild concentric left ventricular hypertrophy. Trace aortic regurgitation. Normal estimated RVSP. No prior study for comparison. Discharge Instructions Given to Patient (Per Discharging Provider) You have been hospitalized for chest pain/pressure. Troponin (enzyme to let us know about damage to the heart) was checked and NEGATIVE x 3. ECHO (ultrasound of the heart) showed no wall motion abnormalities or significant valvular disease. CT of the chest was NEGATIVE for blood clot or pneumonia and biofire was negative for virus at this time. As discussed, please STOP vitamin D/calcium supplements as your levels were HIGH. Discuss with primary care about shots to help with bone health in future and repeat level check. Your Vitamin B12 level was low normal and have been started on oral supplementation/continued at discharge. This can cause fatigue/neuropathy as well as memory issues and anemia. Please continue low salt diet/monitoring of blood pressure and may need this increased in follow up if elevated but has been acceptable at this time. Please follow up with primary care about possibly starting statin for cholesterol for risk prevention as discussed given family history of KS in your father. Please return to the ER with any return of chest pain, shortness of breath, or for any other symptoms concerning for you. It has been a pleasure being a part of the medical team providing for you while you have been in the hospital. Supervising Physician Co-Signing Physician Notes The patient was not seen by me. The chart was reviewed. Case discussed with HORACIO Ryan. Agree with assessment and plan Total Time Total Time Spent Total Time Spent (In Minutes): 40 Coding Level of Care Code 32599 INP/OBS DISCH >30 MIN Diagnoses Chest pain R07.9 Elevated d-dimer R79.89
[2024-09-24 10:57] VITALS: TEMP 98.2
[2024-09-24] MEDS: CYANOCOBALAMIN (B-12) 500 MCG TABLET PO SCH (11:18)
--- NOTE | 2024-09-24 11:32 | XCELERA ---
[id number]
[2024-09-24 11:51] VITALS: BP 123/74; PULSE 65
== END 2024-09-24 13:12 | disposition home or self-care (01) ==
LOC: ED 15:04 → 2W 15:04 → SUATTDRO 21:54 → 2W 22:28